=== PATIENT | male | born 1955 | race Two or more races ===

== ENCOUNTER 2018-03-29 07:44 | Outpatient (CLI) | payer OTHER ==
[~2018-03-29 07:44] MED LIST: BENADRYL50 MG PO
== END 2018-03-29 07:59 | disposition home or self-care (01) ==
LOC: TOM 07:44
DX: J31.0 Chronic rhinitis (principal)

== ENCOUNTER 2020-05-03 11:34 | Emergency (ER) | payer OTHER ==
[~2020-05-03] VITALS: Ht 190.5 cm; Wt 104.3 kg
[2020-05-03] MEDS ORDERED: ZETIA10 MG PO (11:46)
[2020-05-03] MEDS ORDERED: CRESTOR40 MG PO (11:46)
== END 2020-05-03 13:17 | disposition home or self-care (01) ==
LOC: ER 11:34
DX: S91.111A Laceration without foreign body of right great toe without damage to nail, initial encounter (principal); W25.XXXA Contact with sharp glass, initial encounter; Y93.89 Activity, other specified; Y92.018 Other place in single-family (private) house as the place of occurrence of the external cause; Y99.8 Other external cause status

== ENCOUNTER 2022-10-06 09:39 | Outpatient (CLI) | payer OTHER ==
[~2022-10-06 09:39] MED LIST changes: +CRESTOR40 MG PO; +ZETIA10 MG PO
== END 2022-10-06 09:51 | disposition home or self-care (01) ==
LOC: RAD 09:39
PROVIDERS: ATTEND Ophthalmology
DX: R91.8 Other nonspecific abnormal finding of lung field (principal)

== ENCOUNTER 2023-08-29 15:48 | Outpatient (CLI) | payer OTHER | END 2023-08-29 15:53 | disposition home or self-care (01) | LOC: RAD 15:48 | DX: R06.9 Unspecified abnormalities of breathing (principal) ==

== ENCOUNTER 2024-05-30 08:40 | Outpatient (CLI) | payer OTHER | END 2024-05-30 08:42 | disposition home or self-care (01) | LOC: RAD 08:40 | DX: R06.02 Shortness of breath (principal) ==